=== PATIENT | female | born 1945 | race Caucasian/White ===

== ENCOUNTER → 2025-10-16 13:52 | Outpatient (REF) | payer MEDICARE, OTHER, SELFPAY | LOC: HWRAD 13:52 | PROVIDERS: ATTENDING PHYSICIAN Specialist; FAMILY PHYSICIAN Internal Medicine | DX: M16.12 Unilateral primary osteoarthritis, left hip (principal); M54.16 Radiculopathy, lumbar region | CPT/HCPCS: 72131; 73700 ==